=== PATIENT | male | born 1990 ===

== ENCOUNTER 2018-07-28 05:45 | Emergency (ER) | payer SELFPAY ==
[~2018-07-28] VITALS: Ht 167.6 cm; Wt 59.0 kg
--- NOTE | 2018-07-28 05:48 | NUR ---
ED Nurse Note: PT IS HOSTILE AND YELLING PROFANITY, SECURITY AT BEDSIDE. PT IS UNCOOPERATIVE AND WALKING AROUND WITH NO CLOTHING. PT WAS PROVIDED A GOWN.
--- NOTE | 2018-07-28 05:49 | NUR ---
ED Nurse Note: UNABLE TO RETRIEVE VITAL SIGNS SUCCESSFULLY D/T PT'S RESTLESSNESS AND HOSTILE BEHAVIOR.
--- NOTE | 2018-07-28 05:50 | NUR ---
ED Nurse Note: Pt refused to take Vital signs.
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
[2018-07-28 06:01] VITALS: BP 117/62
[2018-07-28 06:02] VITALS: BP 117/62
--- NOTE | 2018-07-28 06:05 | NUR ---
ED Nurse Note: Pt left without being seen. Dr. Lewis and charge nurse, Rogelio jones.
== END 2018-07-28 06:02 | disposition left against medical advice (07) ==
LOC: EDBD 05:45 → EMR 06:01
DX: H10.213 Acute toxic conjunctivitis, bilateral (principal); Z88.0 Allergy status to penicillin; Z53.21 Procedure and treatment not carried out due to patient leaving prior to being seen by health care provider